=== PATIENT | female | born 1985 | race Caucasian/White ===

== ENCOUNTER → 2018-12-15 | Outpatient (CLI) | payer MEDICAID ==
[~2018-12-15] MED LIST: CEFAZOLIN 2 GM/D5W RTU 2 GM/50 ML RTUPB IV PRN; LACTATED RINGERS 1000 ML IV PRN; LIDOCAINE 0.5% INJ-PF (5 MG/ML) 50 ML SDV SUBCUT PRN; RINGERS SOLUTION,LACTATED 1,500 ML IV PRN
[2018-12-15 11:54] LABS: ABSOLUTE EOSINOPHILS # (AUTO) 0.1 10^3/uL (0.0-0.6); ABSOLUTE LYMPHOCYTES (AUTO) 1.6 10^3/uL (0.5-4.7); ABSOLUTE MONOCYTES (AUTO) 0.4 10^3/uL (0.1-1.4); ABSOLUTE NEUT (AUTO) 6.7 10^3/uL (1.7-8.2); BASOPHILS % (AUTO) 0.4 % (0-2); EOSINOPHILS % (AUTO) 0.7 % (0-6); HEMATOCRIT 34.1 % (36.0-47.0); HEMOGLOBIN 11.9 g/dL (12.0-15.5); LYMPHOCYTES % (AUTO) 18.1 % (13-45); MEAN CORPUSCULAR HEMOGLOBIN 30.8 pg (27.0-33.4); MEAN CORPUSCULAR HGB CONC 34.9 g/dL (32.0-36.0); MEAN CORPUSCULAR VOLUME 88 fl (80-97); MONOCYTES % (AUTO) 4.7 % (3-13); PLATELET COUNT 203 10^3/uL (150-450); RED BLOOD COUNT 3.85 10^6/uL (3.72-5.28); RED CELL DISTRIBUTION WIDTH 13.5 % (11.5-14.0); SEGMENTED NEUTROPHILS % (AUTO) 76.1 % (42-78); TOTAL CELLS COUNTED % (AUTO) 100 %; WHITE BLOOD COUNT 8.9 10^3/uL (4.0-10.5)
[2018-12-15 12:03] LABS: APPEARANCE,URINE CLEAR; BILIRUBIN,URINE NEGATIVE (NEGATIVE); COLOR,URINE YELLOW; GLUCOSE, URINE NEGATIVE (NEGATIVE); KETONES,URINE TRACE mg/dL (NEGATIVE); LEUKOCYTE ESTERASE,URINE MODERATE (NEGATIVE); NITRITE,URINE NEGATIVE (NEGATIVE); PROTEIN,URINE NEGATIVE (NEGATIVE); URINE SPECIFIC GRAVITY 1.017; UROBILINOGEN,URINE NEGATIVE mg/dL (<2.0)
[2018-12-15 12:24] LABS: URINE AMPHETAMINES SCREEN NEGATIVE; URINE BARBITURATES SCREEN NEGATIVE; URINE BENZODIAZEPINES SCREEN NEGATIVE; URINE COCAINE SCREEN NEGATIVE; URINE MARIJUANA (THC) SCREEN NEGATIVE; URINE METHADONE SCREEN NEGATIVE; URINE PHENCYCLIDINE SCREEN NEGATIVE
== END ==
LOC: OD 10:59 → EDSTATUS 12-17 09:30
PROVIDERS: ATTEND Obstetrics & Gynecology
DX: Z01.818 Encounter for other preprocedural examination (principal)
CPT/HCPCS: 36415; 80307; 81001; 85025; 86850; 86900; 86901

== ENCOUNTER 2018-12-16 06:26 | Inpatient (IN) | payer MEDICAID ==
[2018-12-16 06:58] LABS: APPEARANCE,URINE CLOUDY; BILIRUBIN,URINE NEGATIVE (NEGATIVE); COLOR,URINE YELLOW; GLUCOSE, URINE NEGATIVE (NEGATIVE); KETONES,URINE NEGATIVE (NEGATIVE); LEUKOCYTE ESTERASE,URINE MODERATE (NEGATIVE); NITRITE,URINE NEGATIVE (NEGATIVE); PROTEIN,URINE 30 mg/dL (NEGATIVE); URINE SPECIFIC GRAVITY 1.016; UROBILINOGEN,URINE NEGATIVE mg/dL (<2.0)
[2018-12-16 07:14] LABS: URINE AMPHETAMINES SCREEN NEGATIVE; URINE BARBITURATES SCREEN NEGATIVE; URINE BENZODIAZEPINES SCREEN NEGATIVE; URINE COCAINE SCREEN NEGATIVE; URINE MARIJUANA (THC) SCREEN NEGATIVE; URINE METHADONE SCREEN NEGATIVE; URINE PHENCYCLIDINE SCREEN NEGATIVE
--- NOTE | 2018-12-16 07:36 | Admission Physical ---
Datetime Report Generated by CPN: 12/16/2018 07:36 CURRENT ADMISSION Chief Complaint: Suspected Ruptured Membranes Chief Complaint Other: previous c/section x 2 Indication for Induction: Not Applicable Admit Impression : Term, Intrauterine ; Ruptured Membranes; Repeat Section Admit Plan: Admit to Unit; Initiate Section Protocol ALLERGIES Medication Allergies: No Medication Allergies: No Known Allergies (12/16/2018) Latex: No Latex Allergies OBSTETRICAL HISTORY EDC: 12/20/2018 00:00 : 3 Para: 2 Term: 2 : 0 SAB: 0 IAB: 0 Ectopic: 0 Livin Cesareans: 2 VBACs: 0 Multiple Births: 0 Hx Previous C/S: Yes Obstetrical History Comments: G1 - c/s 2006 @39wks for NRFHT G2 - repeat c/s 2008 G3 - current, scheduled c/s for 12/17/2018 SEE RECORDS Alcohol: No Marijuana : No Cocaine: No Other Illicit Drugs: No Cigarettes: Former Smoker. [id number] PHYSICAL EXAM General: Normal HEENT: Normal Neurologic: Normal Thyroid: Normal Heart: Normal Lungs: Normal Breast: Normal Back: Normal Abdomen: Normal Genitourinary Exam: Normal Extremities: Normal DTRs: Normal Pelvic Type: Adequate Vital Signs: Reviewed VAGINAL EXAM Dilatation: 0 Effacement: 0 Station: -3 MEMBRANES Pooling: Positive Membranes: Ruptured Amniotic Fluid Color: Clear FETUS A EGA: 39.3 Monitoring: External US FHR- Baseline: 130 Variability: Moderate 6-25bpm Accelerations: 15X15 Decelerations: None FHR Category: Category I Estimated Weight (gm): 3500 Presentation: Vertex Admit Comment: proceed to OR for repeat c/section PLANS FOR LABOR AND DELIVERY Labor and Delivery: None Pain Management: Spinal Feeding Preference: Formula Benefit of Breast Feed Discussed: Yes Circumcision: Yes INFORMED CONSENT Signature: with User ID: DoAnderson
[2018-12-16] MEDS ORDERED: CITRIC ACID/SODIUM CITRATE ORAL SOLN 15 ML UDCUP ONE (08:07)
[2018-12-16] MEDS ORDERED: CEFAZOLIN 2 GM/D5W RTU 2 GM/50 ML RTUPB IV ONE (08:08)
[2018-12-16 08:10] LABS: ABSOLUTE EOSINOPHILS # (AUTO) 0.1 10^3/uL (0.0-0.6); ABSOLUTE LYMPHOCYTES (AUTO) 1.5 10^3/uL (0.5-4.7); ABSOLUTE MONOCYTES (AUTO) 0.4 10^3/uL (0.1-1.4); ABSOLUTE NEUT (AUTO) 6.4 10^3/uL (1.7-8.2); BASOPHILS % (AUTO) 0.4 % (0-2); EOSINOPHILS % (AUTO) 1.1 % (0-6); HEMOGLOBIN 10.9 g/dL (12.0-15.5); LYMPHOCYTES % (AUTO) 17.8 % (13-45); MEAN CORPUSCULAR HEMOGLOBIN 31.1 pg (27.0-33.4); MEAN CORPUSCULAR VOLUME 89 fl (80-97); MONOCYTES % (AUTO) 4.6 % (3-13); PLATELET COUNT 176 10^3/uL (150-450); RED BLOOD COUNT 3.49 10^6/uL (3.72-5.28); RED CELL DISTRIBUTION WIDTH 13.3 % (11.5-14.0); SEGMENTED NEUTROPHILS % (AUTO) 76.1 % (42-78); TOTAL CELLS COUNTED % (AUTO) 100 %; WHITE BLOOD COUNT 8.4 10^3/uL (4.0-10.5)
[2018-12-16] MEDS ORDERED: RINGERS SOLUTION,LACTATED 1,000 ML IV PRN ×2 (08:53→10:40)
[2018-12-16] MEDS ORDERED: RINGERS SOLUTION,LACTATED 1,000 ML IV ONE (08:53)
[2018-12-16] MEDS ORDERED: CEFAZOLIN SODIUM 2 GM in DEXTROSE 5%-WATER 50 ML IV PRN (09:00)
[2018-12-16] MEDS ORDERED: EPHEDRINE SULFATE INJ 50 MG/1 ML AMPULE ONE (09:05)
[2018-12-16] MEDS ORDERED: OXYTOCIN/NORMAL SALINE 20 UNIT/1,000 ML RTUINJ ONE (09:05)
[2018-12-16] MEDS ORDERED: FENTANYL CITRATE INJ/PF 100 MCG/2 ML AMPUL ONE (09:05)
[2018-12-16] MEDS ORDERED: OXYTOCIN 10 UNIT/ML VIAL ONE (09:05)
[2018-12-16] MEDS ORDERED: BUPIVACAINE HCL/DEX-WATER/PF 15 MG/2 ML AMPULE ONE ×2 (09:05→09:34)
[2018-12-16] MEDS ORDERED: MIDAZOLAM 2 MG/2 ML INJ ONE (09:05)
[2018-12-16] MEDS ORDERED: ONDANSETRON HCL INJ/PF 4 MG/2 ML SDV ONE (09:05)
[2018-12-16] MEDS ORDERED: PROMETHAZINE HCL INJ 25 MG/1 ML VIAL IV PRN ×3 (09:27→10:40)
[2018-12-16] MEDS ORDERED: MORPHINE SULFATE 10 MG/ML INJ IV PRN ×2 (09:27→10:40)
[2018-12-16] MEDS ORDERED: FENTANYL CITRATE INJ/PF 100 MCG/2 ML AMPUL IV PRN ×3 (09:27)
[2018-12-16] MEDS ORDERED: NALBUPHINE HCL INJ 10 MG/1 ML AMPULE IM ONE (09:27)
[2018-12-16] MEDS ORDERED: MEPERIDINE HCL/PF INJ 25 MG/1 ML DISP.SYRIN IV PRN (09:27)
[2018-12-16] MEDS ORDERED: DIPHENHYDRAMINE HCL 50 MG/ML VIAL IV PRN (09:27)
--- NOTE | 2018-12-16 10:07 | Warning Signs in Babies ---
VOD Warning Signs Datetime Report Generated by [facility]: 12/16/2018 10:07 VOD#608 -Warning Signs in Babies: Viewed with Parent(s)/Family (12/16/2018 06:45:NORBERT Cifuentes)
[2018-12-16 10:28] LABS: APPEARANCE,URINE CLEAR; BILIRUBIN,URINE NEGATIVE (NEGATIVE); COLOR,URINE YELLOW; GLUCOSE, URINE NEGATIVE (NEGATIVE); KETONES,URINE NEGATIVE (NEGATIVE); LEUKOCYTE ESTERASE,URINE TRACE (NEGATIVE); NITRITE,URINE NEGATIVE (NEGATIVE); PROTEIN,URINE NEGATIVE (NEGATIVE); URINE SPECIFIC GRAVITY 1.017
[2018-12-16] MEDS ORDERED: OXYCODONE-ACETAMINOPHEN 5-325 MG TABLET PO PRN (10:40)
[2018-12-16] MEDS ORDERED: SIMETHICONE 80 MG TAB.CHEW PO PRN (10:40)
[2018-12-16] MEDS ORDERED: DIPH/PERTUSS(ACELL)/TETANUS VAC/PF 0.5 ML SYR (>=10YO) IM PRN (10:40)
[2018-12-16] MEDS ORDERED: OXYTOCIN/NORMAL SALINE 20 UNIT/1,000 ML RTUINJ IV PRN (10:40)
[2018-12-16] MEDS ORDERED: MEASLES,MUMPS&RUBELLA VACC/PF 0.5 ML VIAL SUBCUT PRN (10:40)
[2018-12-16] MEDS ORDERED: ACETAMINOPHEN 325 MG TABLET PO PRN (10:40)
[2018-12-16] MEDS ORDERED: ACETAMINOPHEN 1,000 MG/100 ML RTUPB IV PRN (10:40)
[2018-12-16] MEDS ORDERED: KETOROLAC TROMETHAMINE INJ/PF 30 MG/1 ML SDV ONE (10:47)
[2018-12-16] MEDS ORDERED: ACETAMINOPHEN 1,000 MG/100 ML RTUPB IV ONE (10:47)
[2018-12-16] MEDS ORDERED: NALBUPHINE HCL INJ 10 MG/1 ML AMPULE ONE (10:48)
--- NOTE | 2018-12-16 11:52 | Delivery Summary ---
Del Sum A-C Datetime Report Generated by CPN: 12/16/2018 11:51 DELIVERY PERSONNEL DELIVERY PERSONNEL: [id number] Delivery Doctor:: Dixie Salomon MD Anesthesiologist:: Lorin Barrera MD SHRIMP PEELING MACHINE TENDER:: Owen Little CRNA Junior Automation Engineer:: NORBERT Cifuentes Water Control Supervisor:: Dr Fitz Patelry Nurse:: Leyda Lewis RN Student Observers:: SN MAIN Cramer Mail Clerks Supervisor/VETERINARY SURGEON: Ayla Youssef PERFORMANCE IMPROVEMENT DIRECTOR Mail Clerks Supervisor/VETERINARY SURGEON: Sheridan Frey, ST MATERNAL INFORMATION Delivery Anesthesia: Spinal Medications After Delivery: Pitocin Bolus-Please Comment; Other-Please Comment Meds After Delivery Comment: See Anesthesia Record Maternal Complications: None LABOR SUMMARY EDC: 12/20/2018 00:00 No. Babies in Womb: 1 Attempted: No Labor Anesthesia: None LABOR INFORMATION Reason for Induction: Not Applicable Oxytocin: N/A Group B Beta Strep: negative Antibiotics # of Doses: n/a Steroids Given: None Reason Steroids Not Administered: Not Applicable MEMBRANES Membranes Rupture Method: Spontaneous Rupture of Membranes: 12/16/2018 05:30 Length of Rupture (hr): 4.42 Amniotic Fluid Color: Clear Amniotic Fluid Amount: Moderate Amniotic Fluid Odor: Normal STAGES OF LABOR Stage 3 hr: 0 Stage 3 min: 1 VAGINAL DELIVERY Episiotomy: None Laceration #1: None Laceration Repair: Not Applicable Sponge Count Correct: N/A Sharps Count Correct: N/A CSECTION DELIVERY Primary Indication: Repeat Elective Secondary Indication: Other Other Secondary Indication: SROM CSection Urgency: Non-Scheduled CSection Incidence: Repeat Labor: No Labor Elective: Elective CSection Incision: Lower Uterine Transverse BABY A INFORMATION Delivery Date/Time: 12/16/2018 09:55 Method of Delivery: Born in Route : No : N/A Forceps: N/A Vacuum Extraction: N/A PRESENTATION/POSITION BABY A Presentation: Cephalic Cephalic Presentation: Vertex Vertex Position: n/a Breech Presentation: N/A PLACENTA INFORMATION BABY A Placenta Delivery Time : 12/16/2018 09:56 Placenta Method of Delivery: Manual Removal Placenta Status: Delivered SCORES BABY A Heart Rate 1 min: >100 bpm Resp Effort 1 min: Good Cry Reflex Irritability 1 min: Cough or Sneeze or Pulls Away Muscle Tone 1 min: Active Motion Color 1 min: Body [place], Extremities Blue Resuscitation Effort 1 min: Tactile Stimulation SCORE 1 MIN: 9 Heart Rate 5 min: >100 bpm Resp Effort 5 min: Good Cry Reflex Irritability 5 min: Cough or Sneeze or Pulls Away Muscle Tone 5 min: Active Motion Color 5 min: Body [place], Extremities Blue Resuscitation Effort 5 min: N/A SCORE 5 MIN: 9 Resuscitation Effort 10 min: N/A INFANT INFORMATION BABY A Gestational Age at Delivery: 39.0 Gestational Status: Full Term- 39- 40.6 Weeks Infant Outcome : Liveborn Condition : Stable Infant Sex: Male IDENTIFICATION BABY A Infant Verification Date/Time: 12/16/2018 09:56 ID Band Number: [id number] Mother's Name Verified: Yes RN Verifying : Naila Camp RNC Additional Verifying Personnel: Leyda Lewis RN WEIGHT/LENGTH BABY A Infant Birthweight (gm): 3795 Infant Weight (lb): 8 Infant Weight (oz): 6 Infant Length (in): 20.50 Infant Length (cm): 52.07 CORD INFORMATION BABY A No. Cord Vessels: 3 Nuchal Cord : N/A Cord Blood Taken: Yes-For Storage (Mom's Blood type +) Suction: None ASSESSMENT BABY A Complications: None Physical Findings- Other: see Nursery record Respirations: Appears Normal Skin to Skin: Yes Skin to Skin Time (min): 30 Water Control Supervisor/ALS Called : No Transferred To: Nursery BABY B INFORMATION : N/A
--- NOTE | 2018-12-16 11:52 | OPERATIVE REPORT E ---
Operative Report NAME: SYDNIE KHALIL : 1985 AGE: 33Y DATE OF SURGERY: 12/16/2018 ROOM: LR200 PREOPERATIVE DIAGNOSIS: INTRAUTERINE AT 39 WEEKS AND 3 DAYS. PREVIOUS X2. RUPTURE OF MEMBRANES. POSTOPERATIVE DIAGNOSIS: INTRAUTERINE AT 39 WEEKS AND 3 DAYS. PREVIOUS X2. RUPTURE OF MEMBRANES. OPERATION: Repeat low transverse hysterotomy cesarian section. SURGEON: BRENDA CANTU M.D. ANESTHESIA: Dr. Lorin Barrera with a spinal and Owen Little CRNA FINDINGS: Male infant in cephalic presentation with Apgars of 8 and 9. COMPLICATIONS: None. ESTIMATED BLOOD LOSS: 650 mL. PATHOLOGY: None. PROCEDURE IN DETAIL: The patient was taken to the operating room, prepared, and draped in a normal sterile fashion in the supine position with a leftward tilt. A transverse skin incision was made with a scalpel following the patient's previous scar and this was extended down to the layer of the fascia. With the same scalpel the fascia was excised in the midline and extended bilaterally with René. The fascia was then dissected from the rectus muscles sharply with René and the rectus muscle was divided sharply with the [place] and the peritoneal cavity was also entered sharply. With good visualization of the bladder and the uterus. A bladder blade was inserted. The hysterotomy was nicked with a scalpel and extended laterally with surgeon finger fraction. The was then delivered atraumatically. The nose and mouth were suctioned with the suction bulb, the cord was clamped and cut, and the infant was handed off to the awaiting outreach clinician. Cord blood was collected. The placenta was removed manually. The uterus was exteriorized and cleared of clots and debris. The hysterotomy was closed with 0 Monocryl in a running, locked fashion. A second layer of the same suture was used for imbrication to ensure hemostasis. The uterus was returned to the abdomen. Peritoneal cavity was cleared of clots and debris. The rectus muscle and peritoneum were reapproximated with two mattress stitch of 2-0 chromic. The fascia was closed with 0 Vicryl. The subcutaneous layer was closed with plain catgut, and the skin was closed with 4-0 Vicryl. The patient tolerated the procedure well. Sponge, lap, and needle counts were correct x2. The patient was taken to recovery in stable condition. DICTATING PHYSICIAN: BRENDA CANTU M.D. [id number] PHY#: [id number] ID: [id number] JOB#: [id number] ACCT: [id number] cc:BRENDA CANTU M.D. >
[2018-12-16] MEDS ORDERED: DIPHENHYDRAMINE HCL 50 MG/ML VIAL ONE (12:02)
[2018-12-16] MEDS ORDERED: MORPHINE SULFATE INJ PF 10 MG/10 ML SDV ONE (12:20)
[2018-12-16] MEDS: OXYCODONE-ACETAMINOPHEN 5-325 MG TABLET PO PRN ×2 (16:31→20:51)
[2018-12-16] MEDS: KETOROLAC TROMETHAMINE INJ/PF 30 MG/1 ML SDV IV SCH (19:23)
[2018-12-16] MEDS: DOCUSATE SODIUM 100 MG CAPSULE PO SCH (19:23)
[2018-12-17] MEDS: OXYCODONE-ACETAMINOPHEN 5-325 MG TABLET PO PRN ×5 (04:19→22:13)
[2018-12-17 07:13] LABS: HEMATOCRIT 30.9 % (36.0-47.0); HEMOGLOBIN 10.6 g/dL (12.0-15.5); MEAN CORPUSCULAR HEMOGLOBIN 30.6 pg (27.0-33.4); MEAN CORPUSCULAR HGB CONC 34.3 g/dL (32.0-36.0); MEAN CORPUSCULAR VOLUME 89 fl (80-97); PLATELET COUNT 144 10^3/uL (150-450); RED BLOOD COUNT 3.47 10^6/uL (3.72-5.28); RED CELL DISTRIBUTION WIDTH 13.6 % (11.5-14.0); WHITE BLOOD COUNT 9.3 10^3/uL (4.0-10.5)
[2018-12-17] MEDS: DOCUSATE SODIUM 100 MG CAPSULE PO SCH ×2 (10:55→18:03)
[2018-12-17] MEDS: PRENATAL VITAMIN W DHA CAPSULE PO SCH (10:55)
[2018-12-17] MEDS: KETOROLAC TROMETHAMINE INJ/PF 30 MG/1 ML SDV IV SCH (11:35)
[2018-12-17] MEDS: IBUPROFEN 800 MG TABLET PO SCH ×2 (12:28→18:03)
--- NOTE | 2018-12-17 13:00 | PDOC PROGRESS REPORT ---
Subjective-OB Progress Note for:: 12/17/18 Subjective: PP day one. She is doing well. Dressing is dry. Ext are nontender. Continue pp care. Physical Exam (OB) Vital Signs: Temp Pulse Resp BP Pulse Ox 97.8 F 83 15 116/53 L 98 12/17/18 11:33 12/17/18 11:33 12/17/18 11:33 12/17/18 11:33 12/17/18 11:33 Intake & Output 12/16/18 12/17/18 12/18/18 06:59 06:59 06:59 Intake Total 1950 650 Output Total 650 Balance 1300 650 Weight 102.8 kg - PIH/Pre-Eclampsia DTR's: 2 + Clonus: Negative Headache: Absent Epigastric Pain: No Visual Changes: No - Dressing Removed: No Incision: Dressing Closure Type: Sutures - Bilateral Tubal Ligation Dressing Removed: No Site: Dressing - Lochia Lochia Amount: Scant < 10 ml Lochia Color: Rubra/Red - Abdomen Description: Soft Hernia Present: No Fundal Description: Firm, Midline Fundal Height: u/u - u/2 Objective-Diagnostic Laboratory: 12/17/18 06:33 12/17/18 06:33 WBC 9.3 RBC 3.47 L Hgb 10.6 L Hct 30.9 L MCV 89 MCH 30.6 MCHC 34.3 RDW 13.6 Plt Count 144 L
--- NOTE | 2018-12-17 13:07 | PDOC PROGRESS REPORT ---
Subjective-OB Progress Note for:: 12/17/18 Subjective: Doing well. Physical Exam (OB) Vital Signs: Temp Pulse Resp BP Pulse Ox 97.8 F 83 15 116/53 L 98 12/17/18 11:33 12/17/18 11:33 12/17/18 11:33 12/17/18 11:33 12/17/18 11:33 Intake & Output 12/16/18 12/17/18 12/18/18 06:59 06:59 06:59 Intake Total 1950 650 Output Total 650 Balance 1300 650 Weight 102.8 kg - General General Appearance: Appears well - dressing dry, Ext nontender - PIH/Pre-Eclampsia DTR's: 2 + Clonus: Negative Headache: Absent Epigastric Pain: No Visual Changes: No - Dressing Removed: No Incision: Dressing Closure Type: Sutures - Bilateral Tubal Ligation Dressing Removed: No Site: Dressing - Lochia Lochia Amount: Scant < 10 ml Lochia Color: Rubra/Red - Abdomen Description: Soft Hernia Present: No Fundal Description: Firm, Midline Fundal Height: u/u - u/2 Objective-Diagnostic Laboratory: 12/17/18 06:33 12/17/18 06:33 WBC 9.3 RBC 3.47 L Hgb 10.6 L Hct 30.9 L MCV 89 MCH 30.6 MCHC 34.3 RDW 13.6 Plt Count 144 L Assessment and Plan(PN) - Assessment and Plan (2) S/P Is this a current diagnosis for this admission?: Yes - Time Spent with Patient Time with patient: Less than 15 minutes - continue care
[2018-12-18] MEDS: IBUPROFEN 800 MG TABLET PO SCH ×3 (00:08→13:12)
[2018-12-18] MEDS: OXYCODONE-ACETAMINOPHEN 5-325 MG TABLET PO PRN ×3 (04:24→13:12)
--- NOTE | 2018-12-18 09:29 | PDOC DISCHARGE SUMMARY ---
Final Diagnosis Discharge Date: 12/18/18 - POD #2, desires to go home today. A+, Rubella Immune. Bottlefeeding. - Final Diagnosis (1) Normal course Is this a current diagnosis for this admission?: Yes (2) History of Is this a current diagnosis for this admission?: Yes (3) S/P Is this a current diagnosis for this admission?: Yes Discharge Data - Discharge Medication Prescriptions: Ibuprofen [Motrin 800 mg Tablet] 800 mg PO Q6 30 Days #60 tablet Oxycodone HCl/Acetaminophen [Percocet 5-325 mg Tablet] 1 tab PO Q4HP PRN #30 tablet PRN Reason: Home Medications: Pnv No.95/Ferrous Fum/Folic AC [ Caplet] 1 each PO DAILY 12/11/18 Ibuprofen [Motrin 800 mg Tablet] 800 mg PO Q6 30 Days #60 tablet 12/18/18 Oxycodone HCl/Acetaminophen [Percocet 5-325 mg Tablet] 1 tab PO Q4HP PRN #30 tablet 12/18/18 Reason(s) for Admission: Ceasarean Section-Repeat Procedures: NST, Ultrasound Intrapartum Procedure(s): : Low Cervical, Transverse - Diagnosis Test Laboratory: Temp Pulse Resp BP Pulse Ox 97.8 F 90 18 122/71 98 12/18/18 07:23 12/18/18 07:23 12/18/18 07:23 12/18/18 07:23 12/18/18 07:23 12/16/18 12/16/18 12/17/18 06:43 07:59 06:33 RBC 3.49 L 3.47 L Hgb 10.9 L 10.6 L Hct 31.0 L 30.9 L Urine Opiates Screen NEGATIVE - Discharge information/Instructions Discharge Activity: Activity As Tolerated, No Driving, No Lifting Over 10 Pounds, Pelvic Rest Discharge Diet: As Tolerated, Regular Disposition: HOME, SELF-CARE Follow up with: [facility] in: 1, Weeks
[2018-12-18] MEDS: DOCUSATE SODIUM 100 MG CAPSULE PO SCH (09:47)
[2018-12-18] MEDS: PRENATAL VITAMIN W DHA CAPSULE PO SCH (09:47)
[2018-12-18 12:00] VITALS: BP 123/58
== END 2018-12-18 15:01 | disposition home or self-care (01) | DRG 788 ==
LOC: LC 06:26 → LR 07:03 → 2S 12:48
PROVIDERS: ADMIT Student in an Organized Health Care Education/Training Program; ATTEND Obstetrics & Gynecology
PROC: 10D00Z1 Extraction of Products of Conception, Low, Open Approach (ICD-10-PCS; principal; 2018-12-16)
PROC: 4A1HXCZ Monitoring of Products of Conception, Cardiac Rate, External Approach (ICD-10-PCS; 2018-12-16)
DX: O34.211 Maternal care for low transverse scar from previous cesarean delivery (principal); Z3A.39 39 weeks gestation of pregnancy; Z87.891 Personal history of nicotine dependence; Z37.0 Single live birth
CPT/HCPCS: 1961; 36415; 59025; 80307; 81001; 81005; 84112; 85025; 85027; 86592; 86850; 86900; 86901; 94799; J0131; J0690; J1200; J1885; J2250; J2274; J2300; J2405; J2590; J3010; J3490

== ENCOUNTER 2020-05-27 07:45 | Inpatient (IN) | payer MEDICAID ==
[2020-07-28] MEDS ORDERED: RINGERS SOLUTION,LACTATED 1,000 ML IV PRN ×2 (05:42→10:02)
[2020-07-28] MEDS ORDERED: CEFAZOLIN 2 GM/D5W RTU 2 GM/50 ML RTUPB IV ONE (05:45)
[2020-07-28] MEDS ORDERED: RINGERS SOLUTION,LACTATED 1,000 ML IV ONE (05:45)
[2020-07-28 06:23] LABS: ABSOLUTE EOSINOPHILS # (AUTO) 0.1 10^3/uL (0.0-0.6); ABSOLUTE LYMPHOCYTES (AUTO) 1.5 10^3/uL (0.5-4.7); ABSOLUTE MONOCYTES (AUTO) 0.4 10^3/uL (0.1-1.4); ABSOLUTE NEUT (AUTO) 5.2 10^3/uL (1.7-8.2); BASOPHILS % (AUTO) 0.4 % (0-2); EOSINOPHILS % (AUTO) 1.2 % (0-6); HEMATOCRIT 31.5 % (36.0-47.0); MEAN CORPUSCULAR HEMOGLOBIN 30.4 pg (27.0-33.4); MEAN CORPUSCULAR HGB CONC 34.7 g/dL (32.0-36.0); MEAN CORPUSCULAR VOLUME 88 fl (80-97); MONOCYTES % (AUTO) 5.6 % (3-13); PLATELET COUNT 154 10^3/uL (150-450); RED BLOOD COUNT 3.61 10^6/uL (3.72-5.28); RED CELL DISTRIBUTION WIDTH 15.2 % (11.5-14.0); SEGMENTED NEUTROPHILS % (AUTO) 71.8 % (42-78); TOTAL CELLS COUNTED % (AUTO) 100 %; WHITE BLOOD COUNT 7.2 10^3/uL (4.0-10.5)
[2020-07-28 06:28] LABS: APPEARANCE,URINE SLIGHTLY-CLOUDY; BILIRUBIN,URINE NEGATIVE (NEGATIVE); COLOR,URINE YELLOW; GLUCOSE, URINE NEGATIVE (NEGATIVE); KETONES,URINE NEGATIVE (NEGATIVE); LEUKOCYTE ESTERASE,URINE TRACE (NEGATIVE); NITRITE,URINE NEGATIVE (NEGATIVE); PROTEIN,URINE NEGATIVE (NEGATIVE); URINE SPECIFIC GRAVITY 1.014; UROBILINOGEN,URINE NEGATIVE mg/dL (<2.0)
[2020-07-28 06:40] LABS: URINE AMPHETAMINES SCREEN NEGATIVE; URINE BARBITURATES SCREEN NEGATIVE; URINE BENZODIAZEPINES SCREEN NEGATIVE; URINE COCAINE SCREEN NEGATIVE; URINE MARIJUANA (THC) SCREEN NEGATIVE; URINE METHADONE SCREEN NEGATIVE; URINE PHENCYCLIDINE SCREEN NEGATIVE
[2020-07-28] MEDS ORDERED: DEXAMETHASONE SOD PHOSPHATE INJ 4 MG/1 ML VIAL ONE (08:13)
[2020-07-28] MEDS ORDERED: MIDAZOLAM 2 MG/2 ML INJ ONE (08:13)
[2020-07-28] MEDS ORDERED: MORPHINE SULFATE 10 MG/ML INJ ONE (08:13)
[2020-07-28] MEDS ORDERED: OXYTOCIN/0.9 % SODIUM CHLORIDE 30 UNIT/500 ML RTUINJ ONE (08:13)
[2020-07-28] MEDS ORDERED: OXYTOCIN 10 UNIT/ML VIAL ONE (08:13)
[2020-07-28] MEDS ORDERED: ONDANSETRON HCL INJ/PF 4 MG/2 ML SDV ONE (08:14)
[2020-07-28] MEDS ORDERED: CEFAZOLIN 1 GM/D5W RTU 2 GM/100 ML RTUPB IV ONE (08:21)
[2020-07-28] MEDS ORDERED: MEASLES,MUMPS&RUBELLA VACC/PF 0.5 ML VIAL SUBCUT PRN (10:02)
[2020-07-28] MEDS ORDERED: HYDROMORPHONE HCL INJ/PF 2 MG/ML AMPULE IV PRN (10:02)
[2020-07-28] MEDS ORDERED: PROMETHAZINE HCL INJ 25 MG/1 ML VIAL IV PRN (10:02)
[2020-07-28] MEDS ORDERED: ACETAMINOPHEN 325 MG TABLET PO PRN (10:02)
[2020-07-28] MEDS ORDERED: DIPH/PERTUSS(ACELL)/TETANUS VAC/PF 0.5 ML SYR (>=10YO) IM PRN (10:02)
[2020-07-28] MEDS ORDERED: OXYTOCIN/0.9 % SODIUM CHLORIDE 30 UNIT/500 ML RTUINJ IV PRN (10:02)
--- NOTE | 2020-07-28 10:07 | PDOC DELIVERY SUMMARY ---
Delivery Summary - Maternal Hx : IV Hx Para: III Hx # Term Pregnancies: 4 Number of Living Children: 3 FRANKIE: 08/04/20 Gestational Age: 39.1 Risk Factors: Previous - Delivery Presentation: Vertex Heart Rate Monitoring: Done Pre-Operatively, Externally Pattern: Other: Document in Pattern Other - Cat 1 NST Support Person Present: Yes Location: OR : Scheduled, Repeat Placenta: Within Normal Limits Placenta Description: Grossly normal and intact Number of Vessels (Cord): 3 Delivery of Placenta Date: 07/28/20 Estimated Blood Loss: 800 - Medications Type of Anesthesia:: Spinal - Delivery Personnel RN: MERCEDES JIMENEZ MD: THAO BAILEY
--- NOTE | 2020-07-28 10:20 | Operative Report ---
Operative Report DATE OF SURGERY: 07/28/20 PREOPERATIVE DIAGNOSIS: Intrauterine at 39.1 wks EGA. Prior CS x3. Unwanted fertility POSTOPERATIVE DIAGNOSIS: Same as above OPERATION: Repeat section and bilateral tubal ligation SURGEON: THAO BAILEY 1[employer] MANAGER EMPLOYEE RELATIONS: SADE newman ANESTHESIA: Spinal TISSUE REMOVED OR ALTERED: Placenta COMPLICATIONS: None ESTIMATED BLOOD LOSS: 800cc INTRAOPERATIVE FINDINGS: Adhesions between omentum and anterior abdominal wall. Normal appearing uterus other than thin lower uterine segment. Bilateral falllopian tubes and ovaries are normal appearing. Scar tissue thick in rectus fascia PROCEDURE: IV fluids: per anesthesia record Urinary output: 150 cc Position: To recovery room in stable condition Description of procedure: The patient was taken to the operating room and spinal anesthesia was administered and found to be adequate. She was then placed on the OR table in the supine position with a slight leftward tilt. Patient was prepped and draped in usual sterile fashion. Ancef 2 gms was given IV prior to the procedure for infection prophylaxis. Timeout was taken. A Pfannenstiel skin incision was then made approximately 3 cm above the pubic symphysis and carried down to level the rectus fascia. The rectus fascia was then nicked in the midline with a scalpel and the fascial incision was extended laterally with use of curved Cortés scissors. The rectus fascia was then grasped with 2 Kocker clamps elevated and the underlying rectus muscle was dissected off both bluntly and sharply. Scar tissue noted as above. Any bleeding controlled with cautery. The rectus muscles were then split in the midline and the peritoneum was entered. The peritoneal incision was then extended by manually stretching the peritoneum. The bladder blade was positioned. The bladder was noted to be out of harm's way. A scalpel was then used in the lower uterine for the hysterotomy, slowly until amniotomy was obtained a large amount of fluid was noted. The uterine incision was then manually stretched. The was noted to be in vertex postion. The head was delivered with some difficulty, requiring a Kiwi vacuum for gentle guidance to the hysterotomy incision. NO pop-offs. The shoulders and the rest of the body followed immediately. The cord was cut clamped and the infant was handed off to the nurse awaiting. Infant was crying prior to hand off. The placenta was manually delivered. Using a lap gauze the uterus was cleared of all clots and debris. Exteriorization of the uterus was attempted but not able to due to adhesions and because of this an Alfonzo retractor was placed. A bladder blade was repositioned. The uterine incision was then closed with 0 Chromic suture in a running locked fashion. A second layer of the same suture was used in a running locked imbricated fashion. The uterine incision was inspected and noted to be hemostatic. Anatomy was seen as above. The right fallopian tube was identified and traced to the fimbriated end. A window in the mesosalpinx was identified free of any vasculature and in this area the Bovie was used to create an opening. A free tie was used x2 both distally and proximally to the 2 Flint clamps suspending the fallopian tube at the area of the window. The section of fallopian tube between the free ties was then cut with Metzenbaum scissors and will be sent to the lab as fallopian tube. Blanching noted and hemostasis. Bovie electrocautery was used to cauterize each and of the tube in addition. The left fallopian tube was identified and traced to the fimbriated end. A window in the mesosalpinx was identified free of any vasculature and in this area the Bovie was used to create an opening. A free tie was used x2 both distally and proximally to 2 Flint clamps suspending the fallopian tube at the area of the window. The section of fallopian tube between the free ties was then cut with Metzenbaum scissors and will be sent to the lab as fallopian tube. Bovie electrocautery was used to cauterize the end of each tube. Blanching noted and hemostasis. Warm saline irrigation was used to clear all clots and debris from the abdomen. The uterine incision was inspected once more and noted to remain hemostatic. The bladder blade and Alfonzo retractor were removed and the peritoneum was reapproximated. The omentum was checked prior to this and no areas of bleeding were noted. The rectus muscles were then reapproximated and the rectus fascia was closed with a #0 looped PDS in a running fashion. The subcutaneous tissue was then inspected and any bleeding was controlled with Bovie electrocautery. The subcutaneous tissue was then closed with 2-0 Plain Gut suture in a running fashion. The skin was then closed with 3-0 Monocryl in a running subcuticular fashion. The skin incision was then clean dried and Dermabond was applied over the skin incision. All instrument sponge and needle counts were correct x3 for the procedure the patient tolerated the procedure well. She will proceed to recovery room in stable condition
[2020-07-28] MEDS ORDERED: KETOROLAC TROMETHAMINE INJ/PF 30 MG/1 ML SDV ONE (10:35)
[2020-07-28] MEDS: KETOROLAC TROMETHAMINE INJ/PF 30 MG/1 ML SDV IV SCH ×2 (10:39→17:07)
[2020-07-28] MEDS ORDERED: HYDROMORPHONE HCL INJ/PF 2 MG/ML AMPULE ONE (11:11)
[2020-07-28] MEDS ORDERED: METHYLERGONOVINE MALEATE 0.2 MG TABLET ONE ×2 (11:12→17:04)
[2020-07-28] MEDS: METHYLERGONOVINE MALEATE 0.2 MG TABLET PO SCH ×3 (11:13→17:08)
[2020-07-28] MEDS: OXYCODONE-ACETAMINOPHEN 5-325 MG TABLET PO PRN ×2 (13:36→20:46)
--- NOTE | 2020-07-28 14:40 | Birth Certificate Data ---
Cert Data Datetime Report Generated by CPN: 07/28/2020 14:39 Mother's Height 50b. Height Inches: 63 (07/28/2020 10:34:QS system process) Mother's Weight 51b. Weight at Delivery (lbs): 227 (07/28/2020 10:34:QS system process) Onset of Labor 56a. PROM >12 Hrs: 0.05 (07/28/2020 09:54:QS system process) 57a. Induction of Labor: N/A (07/28/2020 09:54:Anais Mehta RN) 57c. Non-Vertex Presentation A: Vertex (07/28/2020 09:54:Anais Mehta RN) 57d. Steroids - Lung Mat: None (07/28/2020 09:54:Anais Mehta RN) 57d. Steroids - Lung Mat: Not Applicable (07/28/2020 09:54:Anais Mehta RN) 57g. Moderate/Heavy Meconium: Clear (07/28/2020 09:54:Anais Mehta RN) 57h. Intolerance of Labor: Repeat Elective (07/28/2020 09:54:Anais Mehta RN) 57i. Epidural/Spinal Anesthesia: None (07/28/2020 09:54:Anais Mehta RN) Method of Delivery 58a. Forceps - Unsuccessful A: N/A (07/28/2020 09:54:Anais Mehta RN) 58b. Vacuum - Unsuccessful A: Successful (07/28/2020 09:54:Anais Mehta RN) 58c. Presentation at 58c. Presentation at - A : Vertex (07/28/2020 09:54:Anais Mehta RN) 58c. Presentation at - A : N/A (07/28/2020 09:54:Anais Mehta RN) 58c. Presentation at - A : Cephalic (07/28/2020 09:54:Anais Mehta RN) Final Route and Method of Del 58d. Baby A Route/Delivery: (07/28/2020 09:54:Anais Mehta RN) 58e. Trial of Labor Attempted: No (07/28/2020 09:54:Anais Mehta RN) 58e. Trial of Labor Attempted A: N/A (07/28/2020 09:54:Anais Mehta RN) 58e. Trial of Labor Attempted B: N/A (07/28/2020 09:54:Anais Mehta RN) Maternal Morbidity 59b. 3rd or 4th Degree Lacs: None (07/28/2020 09:54:Anais Mehta RN) Birthweight Baby A: 4265 (07/28/2020 09:54:Myra Graham RN) 60a. Pounds : 9 (07/28/2020 09:54:QS system process) 60b. Ounces: 6 (07/28/2020 09:54:QS system process) 61. GA at Delivery Baby A: 39.0 (07/28/2020 09:54:Anais Mehta RN) : Full Term- 39- 40.6 Weeks (07/28/2020 09:54:QS system process) 62a. 5 Minute Baby A: 9 (07/28/2020 09:54:QS system process)
--- NOTE | 2020-07-28 14:40 | Delivery Summary ---
Del Sum A-C Datetime Report Generated by CPN: 07/28/2020 14:39 DELIVERY PERSONNEL DELIVERY PERSONNEL: [id number] Delivery Doctor:: Rayna Maldonado MD JITTERBUG OPERATOR:: Perry Cristobal CRNA Assurance Services Manager Health Care:: Anais Mehta RN Neonatal Nurse Practitioner:: RICHIE Peña Nursery Nurse:: Myra Graham RN Horticultural Specialty Grower Inside/VICE PRESIDENT OF MARKETING: [facility] Horticultural Specialty Grower Inside/VICE PRESIDENT OF MARKETING: Elizabeth Wood, FULLER BRUSH WORKER MATERNAL INFORMATION Delivery Anesthesia: Spinal Medications After Delivery: Pitocin 30 Units in 500ml NS/D5W; Pitocin Drip 20 Units/1000ml NSS Estimated Blood Loss (ml): 615 Delivery QBL: 615 Maternal Complications: None LABOR SUMMARY EDC: 08/04/2020 00:00 No. Babies in Womb: 1 Attempted: No Labor Anesthesia: None LABOR INFORMATION Reason for Induction: Not Applicable Oxytocin: N/A Group B Beta Strep: Negative Antibiotics # of Doses: 0 Name of Antibiotic Given: N/A Steroids Given: None Reason Steroids Not Administered: Not Applicable MEMBRANES Membranes Rupture Method: Artificial Rupture of Membranes: 07/28/2020 09:00 Length of Rupture (hr): 0.05 Amniotic Fluid Color: Clear Amniotic Fluid Amount: Small Amniotic Fluid Odor: Normal STAGES OF LABOR Stage 3 hr: 0 Stage 3 min: 1 VAGINAL DELIVERY Episiotomy: None Laceration #1: None Laceration Extension #1: N/A Laceration Repair: Not Applicable Sponge Count Correct: N/A CSECTION DELIVERY Primary Indication: Repeat Elective CSection Urgency: Scheduled CSection Incidence: Repeat Labor: No Labor Elective: Elective CSection Incision: Lower Uterine Transverse Sterilization Procedure: [place] BABY A INFORMATION Infant Delivery Date/Time: 07/28/2020 09:03 Method of Delivery: Nurse Controlled Delivery: No Born in Route : No : N/A Forceps: N/A Vacuum Extraction: Successful Shoulder Dystocia : No ASSISTED DELIVERY BABY A Vacuum Number of Pulls: 1 Vacuum Number of PopOffs: 0 Total Time Vacuum Applied: 1 min PRESENTATION/POSITION BABY A Presentation: Cephalic Cephalic Presentation: Vertex Breech Presentation: N/A PLACENTA INFORMATION BABY A Placenta Delivery Time : 07/28/2020 09:04 Placenta Method of Delivery: Expressed Placenta Status: Delivered SCORES BABY A Heart Rate 1 min: >100 bpm Resp Effort 1 min: Good Cry Reflex Irritability 1 min: Cough or Sneeze or Pulls Away Muscle Tone 1 min: Active Motion Color 1 min: Blue/Pale Resuscitation Effort 1 min: Tactile Stimulation SCORE 1 MIN: 8 Heart Rate 5 min: >100 bpm Resp Effort 5 min: Good Cry Reflex Irritability 5 min: Cough or Sneeze or Pulls Away Muscle Tone 5 min: Active Motion Color 5 min: Body [place], Extremities Blue SCORE 5 MIN: 9 INFANT INFORMATION BABY A Gestational Age at Delivery: 39.0 Gestational Status: Full Term- 39- 40.6 Weeks Infant Outcome : Liveborn Condition : Stable Infant Sex: Male IDENTIFICATION BABY A Verification Date/Time: 07/28/2020 09:05 ID Band Number: [id number] Mother's Name Verified: Yes Infant RN Verifying : A. gore RN Additional Verifying Personnel: Argo Tea RN WEIGHT/LENGTH BABY A Infant Birthweight (gm): 4265 Infant Weight (lb): 9 Infant Weight (oz): 6 Length (in): 21.50 Infant Length (cm): 54.61 CORD INFORMATION BABY A No. Cord Vessels: 3 Nuchal Cord : N/A Cord Blood Taken: Yes-For Storage (Mom's Blood type +) ASSESSMENT BABY A Skin to Skin: No BABY B INFORMATION : N/A
[2020-07-28] MEDS: DOCUSATE SODIUM 100 MG CAPSULE PO SCH (17:08)
[2020-07-29] MEDS: METHYLERGONOVINE MALEATE 0.2 MG TABLET PO SCH ×3 (00:36→12:26)
[2020-07-29] MEDS: OXYCODONE-ACETAMINOPHEN 5-325 MG TABLET PO PRN ×5 (00:37→20:38)
[2020-07-29] MEDS: KETOROLAC TROMETHAMINE INJ/PF 30 MG/1 ML SDV IV SCH (03:12)
[2020-07-29 08:30] LABS: HEMATOCRIT 32.3 % (36.0-47.0); MEAN CORPUSCULAR VOLUME 88 fl (80-97); PLATELET COUNT 149 10^3/uL (150-450); RED BLOOD COUNT 3.66 10^6/uL (3.72-5.28); RED CELL DISTRIBUTION WIDTH 15.5 % (11.5-14.0); WHITE BLOOD COUNT 10.3 10^3/uL (4.0-10.5)
[2020-07-29] MEDS: PRENATAL VITAMIN W DHA CAPSULE PO SCH (10:12)
[2020-07-29] MEDS: DOCUSATE SODIUM 100 MG CAPSULE PO SCH ×2 (10:12→17:57)
[2020-07-29] MEDS: IBUPROFEN 800 MG TABLET PO SCH ×3 (10:26→21:49)
--- NOTE | 2020-07-29 14:14 | PDOC PROGRESS REPORT ---
Subjective-OB Progress Note for:: 07/29/20 Subjective: reports bleeding slowing, pain controlled with current meds. denies needs. Physical Exam (OB) Vital Signs: Temp Pulse Resp BP Pulse Ox 97.6 F 89 18 113/69 98 07/29/20 12:16 07/29/20 12:16 07/29/20 12:16 07/29/20 12:16 07/29/20 07:58 Intake & Output 07/28/20 07/29/20 07/30/20 06:59 06:59 06:59 Intake Total 4230 Output Total 700 Balance 3530 Weight 102.8 kg - Dressing Removed: Yes Incision: Open Closure Type: Sutures - Bilateral Tubal Ligation Site: Open, Well Approximated - Maternal Morbidity 59. Maternal Morbidity (serious complications experinced by the mother associated with labor and delivery: None of the above - Abdomen Description: Tender, Soft Hernia Present: No Fundal Description: Firm, Midline Fundal Height: u/u - u/2 - Extremities Lower extremities: Marta's sign - neg Calf: Normal, Nontender Objective-Diagnostic Laboratory: 07/29/20 08:05 07/29/20 08:05 WBC 10.3 RBC 3.66 L Hgb 11.0 L Hct 32.3 L MCV 88 MCH 30.0 MCHC 34.0 RDW 15.5 H Plt Count 149 L Assessment and Plan(PN) - Assessment and Plan (1) Encounter for female sterilization procedure Is this a current diagnosis for this admission?: Yes (2) History of Is this a current diagnosis for this admission?: Yes (3) S/P Is this a current diagnosis for this admission?: Yes - Time Spent with Patient Time with patient: Less than 15 minutes - Disposition Anticipated Discharge Disposition: Home, Self Care Anticipated Discharge Timeframe: within 48 hours
[2020-07-29] MEDS: SIMETHICONE 80 MG TAB.CHEW PO PRN (20:00)
[2020-07-30] MEDS: OXYCODONE-ACETAMINOPHEN 5-325 MG TABLET PO PRN ×2 (01:19→06:46)
[2020-07-30] MEDS: SIMETHICONE 80 MG TAB.CHEW PO PRN (05:31)
[2020-07-30] MEDS: IBUPROFEN 800 MG TABLET PO SCH (05:32)
[2020-07-30] MEDS: DOCUSATE SODIUM 100 MG CAPSULE PO SCH (10:19)
[2020-07-30] MEDS: PRENATAL VITAMIN W DHA CAPSULE PO SCH (10:19)
--- NOTE | 2020-07-30 10:54 | PDOC DISCHARGE SUMMARY ---
Impression - Admit/DC Date/PCP Admission Date/Primary Care Provider: 07/28/20 05:04 MAX BRITO MD Discharge Date: 07/30/20 - Discharge Diagnosis (1) Encounter for female sterilization procedure Is this a current diagnosis for this admission?: Yes (2) History of Is this a current diagnosis for this admission?: Yes (3) S/P Is this a current diagnosis for this admission?: Yes - Additional Information Discharge Diet: Regular Discharge Activity: Balance Activity w/Rest, No Lifting Over 10 Pounds, No Lifting/Push/Pulling, Pelvic Rest, No tub bath Referrals: MAX BRITO MD [Primary Care Provider] - Prescriptions: Ibuprofen [Motrin 800 mg Tablet] 800 mg PO Q8HP PRN #90 tablet PRN Reason: Oxycodone HCl/Acetaminophen [Percocet 5-325 mg Tablet] 1 tab PO Q4HP PRN #30 tablet PRN Reason: Home Medications: Pnv No.95/Ferrous Fum/Folic AC [ Caplet] 1 each PO DAILY 12/11/18 Docusate Sodium [Colace 100 mg Capsule] 100 mg PO BID capsule 07/30/20 Ibuprofen [Motrin 800 mg Tablet] 800 mg PO Q8HP PRN #90 tablet 07/30/20 Oxycodone HCl/Acetaminophen [Percocet 5-325 mg Tablet] 1 tab PO Q4HP PRN #30 tablet 07/30/20 Hospital Course 59. Maternal Morbidity (serious complications experinced by the mother associated with labor and delivery: None of the above Results Laboratory Results: WBC 10.3 10^3/uL (4.0-10.5) 07/29/20 08:05 RBC 3.66 10^6/uL (3.72-5.28) L 07/29/20 08:05 Hgb 11.0 g/dL (12.0-15.5) L 07/29/20 08:05 Hct 32.3 % (36.0-47.0) L 07/29/20 08:05 MCV 88 fl (80-97) 07/29/20 08:05 MCH 30.0 pg (27.0-33.4) 07/29/20 08:05 MCHC 34.0 g/dL (32.0-36.0) 07/29/20 08:05 RDW 15.5 % (11.5-14.0) H 07/29/20 08:05 Plt Count 149 10^3/uL (150-450) L 07/29/20 08:05 Lymph % (Auto) 21.0 % (13-45) 07/28/20 06:14 [place] % (Auto) 5.6 % (3-13) 07/28/20 06:14 Eos % (Auto) 1.2 % (0-6) 07/28/20 06:14 Baso % (Auto) 0.4 % (0-2) 07/28/20 06:14 Absolute Neuts (auto) 5.2 10^3/uL (1.7-8.2) 07/28/20 06:14 Absolute Lymphs (auto) 1.5 10^3/uL (0.5-4.7) 07/28/20 06:14 Absolute Monos (auto) 0.4 10^3/uL (0.1-1.4) 07/28/20 06:14 Absolute Eos (auto) 0.1 10^3/uL (0.0-0.6) 07/28/20 06:14 Absolute Basos (auto) 0.0 10^3/uL (0.0-0.2) 07/28/20 06:14 Seg Neutrophils % 71.8 % (42-78) 07/28/20 06:14 Urine Color YELLOW 07/28/20 05:30 Urine Appearance SLIGHTLY-CLOUDY 07/28/20 05:30 Urine pH 7.0 (5.0-9.0) 07/28/20 05:30 Ur Specific [place] 1.014 07/28/20 05:30 Urine Protein NEGATIVE mg/dL (NEGATIVE) 07/28/20 05:30 Urine Glucose (UA) NEGATIVE mg/dL (NEGATIVE) 07/28/20 05:30 Urine Ketones NEGATIVE mg/dL (NEGATIVE) 07/28/20 05:30 Urine Blood NEGATIVE (NEGATIVE) 07/28/20 05:30 Urine Nitrite NEGATIVE (NEGATIVE) 07/28/20 05:30 Urine Bilirubin NEGATIVE (NEGATIVE) 07/28/20 05:30 Urine Urobilinogen NEGATIVE mg/dL (<2.0) 07/28/20 05:30 Ur Leukocyte Esterase TRACE (NEGATIVE) H 07/28/20 05:30 Urine WBC (Auto) 4 /HPF 07/28/20 05:30 Urine RBC (Auto) 1 /HPF 07/28/20 05:30 Urine Bacteria (Auto) 3+ /HPF 07/28/20 05:30 Squamous Epi Cells Auto 23 /HPF 07/28/20 05:30 Urine Mucus (Auto) RARE /LPF 07/28/20 05:30 Urine Ascorbic Acid NEGATIVE (NEGATIVE) 07/28/20 05:30 Urine Opiates Screen NEGATIVE 07/28/20 05:30 Urine Methadone Screen NEGATIVE 07/28/20 05:30 Ur Barbiturates Screen NEGATIVE 07/28/20 05:30 Ur Phencyclidine Scrn NEGATIVE 07/28/20 05:30 Ur Amphetamines Screen NEGATIVE 07/28/20 05:30 U Benzodiazepines Scrn NEGATIVE 07/28/20 05:30 Urine Cocaine Screen NEGATIVE 07/28/20 05:30 U Marijuana (THC) Screen NEGATIVE 07/28/20 05:30 COVID-19 Source See comment 07/25/20 08:15 COVID-19 (ASYA) Not Detected (Not Detect) 07/25/20 08:15 Blood Type A POSITIVE 07/28/20 06:14 Antibody Screen NEGATIVE 07/28/20 06:14 Plan Plan of Treatment: follow up in one week at [facility] for incision check
[2020-07-30 11:59] VITALS: BP 122/60
== END 2020-07-30 13:10 | disposition home or self-care (01) | DRG 785 ==
LOC: 2S 07-28 05:04
PROVIDERS: ADMIT Obstetrics & Gynecology; ATTEND Obstetrics & Gynecology
PROC: 10D00Z1 Extraction of Products of Conception, Low, Open Approach (ICD-10-PCS; principal; 2020-07-28)
PROC: 0UB70ZZ Excision of Bilateral Fallopian Tubes, Open Approach (ICD-10-PCS; 2020-07-28)
DX: O34.211 Maternal care for low transverse scar from previous cesarean delivery (principal); Z30.2 Encounter for sterilization; Z03.818 Encounter for observation for suspected exposure to other biological agents ruled out; Z3A.39 39 weeks gestation of pregnancy; Z37.0 Single live birth
CPT/HCPCS: 1961; 36415; 59025; 80307; 81001; 85025; 85027; 86850; 86900; 86901; 87635; 88302; 94760; 94799; C9803; J0690; J1100; J1170; J1885; J2250; J2270; J2405; J2590; J3490; J7120